=== PATIENT | female | born 1985 | race Caucasian/White ===

== ENCOUNTER → 2017-07-14 | Outpatient (CLI) | payer BC ==
--- NOTE | 2017-07-14 15:32 | DIAGNOSTIC IMAGING REPORT ---
R KNEE 4 OR MORE CLINICAL HISTORY: RIGHT KNEE PAIN COMPARISON STUDY: None. FINDINGS: There are few small ossific densities adjacent to the medial aspect of the patella with the largest measuring 4 mm. These could be due to a small age-indeterminate avulsion fracture from the medial patella. There is also subchondral lucency at the median ridge of the patella. This could be due to degenerative change or an osteochondral lesion. Trace knee effusion. Soft tissues are unremarkable. Cartilage spaces are maintained. IMPRESSION: 1. A few small ossific densities adjacent to the medial patella with the largest measuring 4 mm. These could be due to small age-indeterminate avulsion fractures from the medial patella. 2. There is also subchondral lucency at the median right the patella which can be seen the setting of degenerative change or an osteochondral lesion. Electronically signed by: Joel Hart M.D. 07/14/2017 3:30 PM Dictated Date/Time: 07/14/2017 3:27 PM
== END | disposition home or self-care (01) ==
LOC: C.RDSM 14:32
PROVIDERS: ATTEND Physician Assistant
DX: M25.561 Pain in right knee (principal)

== ENCOUNTER → 2017-11-02 | Day surgery (SDC) | payer BC ==
[2017-10-13 13:02] VITALS: Ht 167.6 cm; Wt 71.8 kg
[~2017-11-02] VITALS: Ht 167.6 cm; Wt 71.8 kg
[~2017-11-02] MED LIST: ATROPINE SULFATE 0.1 MG/ML 5ML SYR IV PRN; CEFTRIAXONE 2000MG IV SCH; CEFTRIAXONE SOD 2 GM VIAL IV ONE; EpINEphrine HCL INJ 1 MG/ML 1ML SYRINGE ONE; FENTANYL CITRATE INJ 50 MCG/1 ML 2 ML VIAL ONE; KETOROLAC TROMETHAMINE 30 MG/ML VIAL IV. PRN; LACTATED RINGER'S 1000ML 1,000 ML IV SCH; LEVO1IUD2; LIDOCAINE HCL 2% 2 ML VIAL (20MG/ML) ONE; MIDAZOLAM HCL 1 MG/ML 2ML VIAL ONE; ONDANSETRON INJ 2 MG/ML 2 ML VIAL IV PRN; ONDANSETRON INJ 2 MG/ML 2 ML VIAL ONE; OXYCODONE/ACETAMINOPHEN 5-325 TAB PO PRN; PROPOFOL IV EMULSION 10 MG/ML 20 ML VIAL IV ONE; ROPIVACAINE 0.5% 5 MG/ML 30 ML VIAL ONE; SODIUM CHLORIDE 0.9% 1000ML 1,000 ML IV SCH; [UNRECOGNIZED DRUG - OTHER] PO; [UNRECOGNIZED DRUG - OTHER] PO; [UNRECOGNIZED DRUG - OTHER] PO; [UNRECOGNIZED DRUG - OTHER] PO
--- NOTE | 2017-11-02 06:56 | History & Physical Bridge Note ---
H&P Re-Evaluation Bridge Note: I have examined the patient, reviewed the History & Physical and in the interval since the performance of the History & Physical I have noted the following changes of clinical significance: consent obtained.No changes noted
--- NOTE | 2017-11-02 06:57 | Discharge Instructions ---
Discharge Instructions Date of Service Nov 02, 2017. Visit Reason for Visit: Right Knee Rec Patella Femoral Instability Discharge Discharge Diagnosis / Problem: same Discharge Goals Goal(s): Decrease discomfort, Improve function Medications Stopped Medications Name(s): no BCP's Restart Stopped Medication(s): use scripts as directed Activity Recommendations Activity Limitations: as noted below Lifting Limitations: until after follow-up appointment Exercise/Sports Limitations: until after follow-up appointment May Resume Sexual Activity: after follow-up appointment Shower/Bathe: keep incision dry Driving or Machine Use: Weightbearing Status: Right non-weightbearing Anesthesia . Post Anesthesia Instructions: If you have had General Anesthesia or IV Sedation: * Do not drive today. * Resume driving when surgeon permits. * Do not make important decisions or sign legal documents today. * Call surgeon for: 1. Temperature elevations greater than 101 degrees F. 2. Uncontrollable pain. 3. Excessive bleeding. 4. Persistent nausea and vomiting. 5. Medication intolerance (nausea, vomiting or rash). * For nausea and vomiting use only clear liquids such as: tea, soda, bouillon until nausea subsides, then gradually increase diet as tolerated. * If you have any concerns or questions, call your surgeon's office. If physician is unavailable and it is an emergency, call 911 or go to the nearest emergency room. . Diet Recommendations Recommended Home Diet: resume previous diet Procedures Procedures Performed: see op note Pending Studies Studies pending at discharge: no Medical Emergencies . Who to Call and When: Medical Emergencies: If at any time you feel your situation is an emergency, please call 911 immediately. . Non-Emergent Contact Non-Emergency issues call your: Specialist Call Non-Emergent contact if: wound has increased drainage, wound has increased redness, wound has increased pain . . "Provider Documentation" section prepared by Peter Lemos. .
--- NOTE | 2017-11-02 06:58 | History & Physical Bridge Note ---
H&P Re-Evaluation Bridge Note: I have examined the patient, reviewed the History & Physical and in the interval since the performance of the History & Physical I have noted the following changes of clinical significance: No changes noted
[2017-11-02] MEDS: CEFAZOLIN 2000MG IV PUSH 15 ML IV SCH ×2 (07:43→07:50)
--- NOTE | 2017-11-02 09:43 | [facility] Post Operative Brief Note ---
Immediate Operative Summary Operative Date Nov 02, 2017. 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 Lemos Industrial Diamond Polisher Surgeon(s) Dr. Jasmine, Fellow; KRISTAL Delgadillo Estimated Blood Loss 25 ML Findings Consistent with Post-Op Diagnosis Fluids (cc crystalloids) 900cc Specimens None Drains None Anesthesia Type General Regional Complication(s) none Disposition Accompanied Pt To Recovery: no Disposition: Recovery Room / PACU
[2017-11-02] MEDS: FENTANYL CITRATE INJ 50 MCG/1 ML 2 ML VIAL IV PRN ×2 (10:24→10:38)
--- NOTE | 2017-11-02 10:26 | OPERATIVE REPORT ---
DATE OF OPERATION: 11/02/2017 SURGEON: Peter Lemos MD CUSTOMER CARE SPECIALIST: Fili. 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 POSTOPERATIVE DIAGNOSES: Same. OPERATIONS PERFORMED: 1. Exam under anesthesia. 2. Diagnostic arthroscopy. 3. Arthroscopic removal of multiple loose bodies and chondroplasty of patella. 4. Arthrotomy Cartiform insertion in the central zone of the patella, 18 x 18 mm. 5. Carmela osteotomy. PERIOPERATIVE SITUATION: Medically cleared female with intractable patellofemoral pain and instability. Physical exam, x-ray and MRI scan consistent with the above diagnoses. DESCRIPTION OF PROCEDURE: The patient was appropriately identified, site verified, consent verified, and 2 grams of Ancef confirmed as being given. The right lower extremity was examined, revealing gross patellofemoral instability. The collateral and cruciate ligaments were normal. The knee was then sterilely prepped and draped in the usual routine fashion. Tourniquet inflated to 275 mmHg after exsanguination of limb with a rubber Esmarch bandage for a total of 77 minutes. An inferomedial and inferolateral portals were made. Inspection of the joint revealed multiple loose bodies and these were removed. There was a significant articular disease of the patella. This was resected. It was down on the bone in the central zone. The medial and lateral compartments were relatively healthy. The PCL and ACL were normal. The arthroscopic portion of procedure was then terminated. All instruments and fluid removed. A midline incision made and a parapatellar arthrotomy performed. The patella was then everted. The central zone lesion was identified. It was sharply cut down with a fresh 15 blade and then curetted down to bone, removing all the calcified cartilage. The lesion was 18 x 18. Cartiform was then identified as the appropriate choice. It was then thawed. The sliding anchor was then placed centrally and 4 drill holes placed along the margin of the lesion. Once the Cartiform was cut, the sliding suture was then placed through the graft and then secured. The graft secured down and then multiple #5 Vicryls placed through the graft and secured down with PushLocks in the corners. We went from an inferior, medial and inferolateral to superomedial and superolateral and then tightened up in the central area. This was all snugged. The wound was then irrigated and the Tisseel placed after 5-1/2 minutes. The knee was then inspected. Some minor trimming distally was performed. The graft was stable. The procedure was then turned towards the Carmela, where appropriate tissue dissection was made in the proximal part of extensor mechanism. Osteotome cuts were made proximally and then using saw, the oblique cut made, starting deep proximally and shallow distally as this was then less than greenstick fracture medially. It was left intact distally. Excellent correction was made of about 15 mm. The 4.5 cortical drill bit was then used to place a sliding hole through the tubercle shingle and then the posterior hole was then made with a 3.2 drill bit and then using 54 and 58 screws. The graft was then compressed and shingle was then compressed nicely to the tibia. Multiple plain images revealed good positioning of the Carmela osteotomy shingle as well as the screw length. The wound was then irrigated. The procedure was then terminated. The capsular area was then closed with #1 Vicryl, subcutaneous layer with 2-0 plain and the skin with stainless steel clips. ESTIMATED BLOOD LOSS: 25 mL. CRYSTALLOID: About 900 mL. The patient will be nonweightbearing for 5-6 weeks. The patient will not start range of motion until the Tisseel has enough biologic growth to hold the graft firmly into place. She will start range of motion at 7-10 days. The patient was locked in a knee immobilizer hinged CPT brace. Again, estimated blood loss was as noted. DVT prophylaxis with Lovenox starting tomorrow. I attest to the content of the Intraoperative Record and any orders documented therein. Any exception s are noted below.
[2017-11-02 10:56] VITALS: TEMP 37
[2017-11-02 11:57] VITALS: BP 125/87; PULSE 78; O2SAT 100
--- NOTE | 2017-11-02 12:07 | Anesthesia Progress Nt - [facility] ---
Anesthesia Post Op Note Date & Time Nov 02, 2017 at 12:07 Vital Signs Vital Signs Past 12 Hours Date Time Temp Pulse Resp B/P (MAP) Pulse Ox O2 Delivery O2 Flow Rate FiO2 11/02/17 11:57 78 18 125/87 (100) 100 Room Air 11/02/17 10:56 37.0 92 18 124/81 (95) 100 Room Air 11/02/17 10:51 37.1 87 16 119/76 100 Room Air 11/02/17 10:47 79 10 99 11/02/17 10:47 78 10 11/02/17 10:46 117/95 11/02/17 10:42 78 9 11/02/17 10:42 77 9 100 11/02/17 10:40 129/84 11/02/17 10:37 87 8 100 11/02/17 10:37 86 8 11/02/17 10:36 132/85 11/02/17 10:32 80 12 100 11/02/17 10:32 82 12 11/02/17 10:30 125/92 11/02/17 10:27 83 9 11/02/17 10:27 82 9 100 11/02/17 10:25 121/86 11/02/17 10:22 86 13 11/02/17 10:22 84 13 100 11/02/17 10:20 126/85 11/02/17 10:17 90 14 100 11/02/17 10:17 89 14 11/02/17 10:16 121/79 11/02/17 10:12 92 9 100 11/02/17 10:12 91 9 11/02/17 10:11 121/80 11/02/17 10:07 96 13 11/02/17 10:07 96 13 100 11/02/17 10:06 87 10 11/02/17 10:06 89 10 100 11/02/17 10:05 127/80 11/02/17 10:03 116/70 11/02/17 10:03 36.6 83 12 116/70 99 Mask 11/02/17 07:41 79 11/02/17 07:41 81 12 100 11/02/17 07:40 126/85 11/02/17 07:39 79 11/02/17 07:39 78 16 100 11/02/17 07:38 74 16 100 11/02/17 07:38 77 11/02/17 07:36 122/82 11/02/17 07:33 75 11/02/17 07:33 75 9 99 11/02/17 07:31 126/81 11/02/17 07:28 85 8 99 11/02/17 07:28 83 11/02/17 07:26 133/79 11/02/17 07:23 76 20 100 11/02/17 07:23 76 11/02/17 07:21 139/90 11/02/17 07:18 98 11/02/17 07:18 100 19 100 11/02/17 07:17 131/88 11/02/17 07:13 81 0 11/02/17 07:08 93 6 11/02/17 07:08 6 11/02/17 07:03 13 11/02/17 07:03 94 13 11/02/17 06:58 11 11/02/17 06:58 85 11 11/02/17 06:53 14 11/02/17 06:53 97 14 11/02/17 06:37 36.8 96 20 122/92 (102) 99 Room Air 11/02/17 06:37 122/92 Notes Mental Status: alert / awake / arousable, participated in evaluation Pt Amnestic to Procedure: Yes Nausea / Vomiting: adequately controlled Pain: adequately controlled Airway Patency, RR, SpO2: stable & adequate BP & HR: stable & adequate Hydration State: stable & adequate Anesthetic Complications: no major complications apparent
--- NOTE | 2017-11-04 10:12 | [facility] Operative Report ---
Operative Report Operative Date Nov 02, 2017. 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 Lemos Well Tender Surgeon(s) Dr. Jasmine, Fellow; KRISTAL Delgadillo Estimated Blood Loss 25 ML Findings Right knee patellofemoral instability with chondrosis of the patella Intra-articular loose bodies Fluids 900cc Specimens None Drains None Anesthesia Type General Regional Complication(s) none Disposition no Recovery Room / PACU Indications This 32-year-old white female presented to the office with complaints of recurrent right knee patellofemoral instability and pain. She had tried conservative care measures without improvement. She elected to proceed with further surgical intervention after being educated about potential risks and outcomes. Preoperative imaging was obtained. Description of Procedure Patient was administered a regional block and then taken to the operating room where she was given general anesthesia. She was prepped and draped in usual sterile fashion. Please see Dr. Lemos's operative report for specifics of the procedure. I was present for the entire case from initial patient positioning through final wound closure. Assistance was provided in arthroscopy , tissue retraction, hemostasis, hardware placement, implant placement, and final wound closure. Patient was taken to the recovery room in satisfactory condition. I attest to the content of the Intraoperative Record and any orders documented therein. Any exceptions are noted below.
== END | disposition home or self-care (01) ==
LOC: X.SURG 06:15
PROVIDERS: ATTEND Physical Medicine & Rehabilitation Sports Medicine
DX: M23.51 Chronic instability of knee, right knee (principal); M22.41 Chondromalacia patellae, right knee; Z86.718 Personal history of other venous thrombosis and embolism; Z83.3 Family history of diabetes mellitus

== ENCOUNTER → 2017-12-10 | Outpatient (CLI) | payer BC ==
[~2017-12-10] MED LIST changes: -ATROPINE SULFATE 0.1 MG/ML 5ML SYR IV PRN; -CEFTRIAXONE 2000MG IV SCH; -CEFTRIAXONE SOD 2 GM VIAL IV ONE; -EpINEphrine HCL INJ 1 MG/ML 1ML SYRINGE ONE; -FENTANYL CITRATE INJ 50 MCG/1 ML 2 ML VIAL ONE; -KETOROLAC TROMETHAMINE 30 MG/ML VIAL IV. PRN; -LACTATED RINGER'S 1000ML 1,000 ML IV SCH; -LIDOCAINE HCL 2% 2 ML VIAL (20MG/ML) ONE; -MIDAZOLAM HCL 1 MG/ML 2ML VIAL ONE; -ONDANSETRON INJ 2 MG/ML 2 ML VIAL IV PRN; -ONDANSETRON INJ 2 MG/ML 2 ML VIAL ONE; -OXYCODONE/ACETAMINOPHEN 5-325 TAB PO PRN; -PROPOFOL IV EMULSION 10 MG/ML 20 ML VIAL IV ONE; -ROPIVACAINE 0.5% 5 MG/ML 30 ML VIAL ONE; -SODIUM CHLORIDE 0.9% 1000ML 1,000 ML IV SCH
== END | disposition home or self-care (01) ==
LOC: C.RDSM 10:55
PROVIDERS: ATTEND Physical Medicine & Rehabilitation Sports Medicine
DX: M25.361 Other instability, right knee (principal)